=== PATIENT | female | born 1980 | race Caucasian/White ===

== ENCOUNTER 2016-10-10 18:45 | Observation (INO) | payer BC, MEDICAID ==
[~2016-10-10] VITALS: Ht 149.9 cm; Wt 67.1 kg
--- OUTSIDE RECORDS SUMMARY | 2016-10-10 18:50 | XMS REPORT ---
Author ALEC Badillo e[employer] Address Unknown Phone Unavailable Care Team Providers Care Tie Fastener Name Role Phone ALEC DOVE CP Unavailable Allergies, Adverse Reactions, Alerts Substance Reaction Event Type ampicilin Info Not Available Non Drug Allergy Problems Problem Type Condition Code Onset Dates Condition Status Assessment Dental examination Z01.20 Active Medications Medication Code System Code Instructions Start Date End Date Status Dosage [place] [facility] [id number] 5-325 MG Orally every 6 hrs February 01, 2016January 1 tablet as needed Amoxicillin [facility] [address]-02 500 MG Orally Four times a day February 01, 2016 February 08, 2016 1 capsule Procedures Procedure Coding System Code Date INTRAORL-PERIAPICAL 1 FILM 96481 CPT-4 D0220 February 01, 2016 BITEWING - SINGLE FILM CPT-4 D0270 February 01, 2016 LTD ORAL EVALUATION - PROBLEM FOCUS CPT-4 D0140 February 01, 2016 Vital Signs Date/Time: February 01, 2016 Blood Pressure Diastolic 92 mmHg Blood Pressure Systolic 137 mmHg Results No Known Results Summary Purpose eClinicalWorks Submission
[2016-10-10 19:20] VITALS: BP 117/71
[2016-10-10 19:43] LABS: BILIRUBIN,URINE NEGATIVE (NEGATIVE); KETONES,URINE 1+ (NEGATIVE); LEUKOCYTE ESTERASE ,URINE NEGATIVE (NEGATIVE); NITRITE,URINE NEGATIVE (NEGATIVE); PH,URINE 6 (5-9); PROTEIN,URINE 1+ (NEGATIVE); UROBILINOGEN,URINE NORMAL (NORMAL)
[2016-10-10 19:57] LABS: WBC,URINE 0-2 /HPF
[2016-10-10 19:58] LABS: SQUAMOUS EPITHELIAL CELL,UR RARE /HPF
[2016-10-10] MEDS ORDERED: NS IV 1000 ML 1,000 ML ONE (20:03)
[2016-10-10] MEDS ORDERED: NS IV 1000 ML 1,000 ML IV SCH ×2 (20:15→22:45)
[2016-10-10] MEDS ORDERED: PREN-37 PO (20:32)
[2016-10-10 21:28] VITALS: BP 125/80
[2016-10-10] MEDS ORDERED: CALCIUM CARBONATE 500 MG (TUMS) TAB.CHEW PO PRN (21:30)
[2016-10-10 22:52] VITALS: BP 122/61
[2016-10-11] MEDS ORDERED: D5 LR IV SOLUTION 1,000 ML IV SCH (00:41)
[2016-10-11] MEDS ORDERED: HYDROmorphone (DILAUDID) 2 MG/ML VIAL IVP ONE (00:45)
[2016-10-11] MEDS ORDERED: MINERAL OIL CONCENTRATE 99.9% 15 ML UDC TOP PRN (00:45)
[2016-10-11 00:59] LABS: BASOPHILS % (AUTO) 0 % (0-10); EOSINOPHILS # (AUTO) 0.1 10^3/uL (0.0-0.3); EOSINOPHILS % (AUTO) 1 % (0-10); LYMPHOCYTES # (AUTO) 1.6 X 10^3 (1.0-4.0); LYMPHOCYTES % (AUTO) 16 % (12-44); MEAN CORPUSCULAR HEMOGLOBIN 26 PG (25-34); MEAN CORPUSCULAR HGB CONC 32 G/DL (32-36); MEAN CORPUSCULAR VOLUME 80 FL (80-99); MEAN PLATELET VOLUME 9.7 FL (7.4-10.4); MONOCYTES # (AUTO) 0.9 X 10^3 (0.0-1.0); MONOCYTES % (AUTO) 9 % (0-12); NEUTROPHILS # (AUTO) 7.1 X 10^3 (1.8-7.8); NEUTROPHILS % (AUTO) 74 % (42-75); PLATELET COUNT 230 10^3/uL (130-400); RED BLOOD COUNT 4.09 10^6/uL (4.35-5.85); RED CELL DISTRIBUTION WIDTH 13.1 % (10.0-14.5); WHITE BLOOD COUNT 9.7 10^3/uL (4.3-11.0)
[2016-10-11 04:53] VITALS: BP 113/73
[2016-10-11] MEDS ORDERED: FLU TRIvalent (5 YOA+) 2016-17 (AFLURIA) 0.5 ML IM ONE (07:00)
[2016-10-11] MEDS ORDERED: CATHETER FLUSH 10 ML SYR IV PRN (07:00)
[2016-10-11 08:00] VITALS: BP 121/73
--- NOTE | 2016-10-11 08:27 | History & Physical-OB ---
OB - Chief Complaint & HPI Date Date of Admission: Date of Admission: Oct 11, 2016 at 12:30 am Chief Complaint/History OB-Reason for Admission/Chief: Labor Hx : 8 Hx Para: 5 Expected Date of Delivery: Nov 10, 2016 Gestational Age in Weeks: 35 Gestational Age in Days: 5 Other reason for admission: contractions and small amount of cervical change from 2 - > 2.5, with regular contractions q 2-3 min. Admission Nurse Assessment Rev: Yes History of Labs see Dr. Borrero's prenatals GBS done and negative Allergies and Home Medications Allergies Coded Allergies: Ampicillin (Verified Allergy, Unknown, 06/17/07) Home Medications Vit/Iron Fumarate/FA 1 Each Tablet 1 EACH PO DAILY (Reported) OB - History Hx of Present Care: Yes Ultrasounds: Normal mid trimester US Obstetrical Complications: None Medical Complications: None Obstetrical History Hx : 8 Hx Para: 5 Hx Total # of Abortions (Spona: 2 Hx Multiple Gestation: No Hx Stillbirth: No Hx Complication: No Hx Induced Hypertens: No Hx Maternal Gestational Diabet: No Delivery History Hx Dystocia: No Hx Large For Gestational Age I: No Hx Small for Gestational Age I: No Hx Section: No Hx Vaginal Delivery Post C-Sec: No Hx Blood Disorders: No Adverse Rxn to Tranfusion: No Patient Past Medical History Hx of Asthma Social History/Family History HIV/AIDS: No Recent Infectious Disease Expo: No Sexually Transmitted Disease: No Alcohol Use: Denies Use Recreational Drug Use: No Immunizations Hepatitis A: No Hepatitis B: No OB - Admission Exam Physical Exam Vitals: Vital Signs 10/11/16 10/11/16 04:53 06:23 Temp 99.2 Pulse 89 Resp 18 B/P 113/73 O2 Delivery Room Air HEENT: NCAT Abdomen: Gravid Extremities: Normal Reflexes: Normal Cervical Dilatation: 2cm Effacement: 75% Station: -3 Membranes: Intact Heart Rate: 130's Accelerations: Accelerations Present Decelerations: No Decelerations Short Term Variability: Present [employer] Layout Drafter Variability: Average (6-25) Contractions on Admission: 6-10 Minutes Apart Intensity: Mild Labs Laboratory Tests Test 10/10/16 19:10 10/11/16 00:52 Range/Units Urine Bacteria TRACE /HPF Urine Bilirubin NEGATIVE NEGATIVE Urine Casts NONE /LPF Urine Clarity CLEAR Urine Color YELLOW Urine Crystals NONE /LPF Urine Culture Indicated NO Urine Glucose (UA) 2+ H NEGATIVE Urine Ketones 1+ H NEGATIVE Urine Leukocyte Esterase NEGATIVE NEGATIVE Urine Mucus NEGATIVE /LPF Urine Nitrite NEGATIVE NEGATIVE Urine Protein 1+ H NEGATIVE Urine RBC 0-2 /HPF Urine RBC (Auto) 2+ H NEGATIVE Urine Specific [place] 1.020 1.016-1.022 Urine Squamous Epithelial Cells RARE /HPF Urine Urobilinogen NORMAL NORMAL MG/DL Urine WBC 0-2 /HPF Urine pH 6 5-9 Basophils # (Auto) 0.0 0.0-0.1 10^3/uL Basophils (%) (Auto) 0 0-10 % Eosinophils # (Auto) 0.1 0.0-0.3 10^3/uL Eosinophils (%) (Auto) 1 0-10 % Hematocrit 33 L 35-52 % Hemoglobin 10.6 L 11.5-16.0 G/DL Lymphocytes # (Auto) 1.6 1.0-4.0 X 10^3 Lymphocytes (%) (Auto) 16 12-44 % Mean Corpuscular Hemoglobin 26 25-34 PG Mean Corpuscular Hemoglobin Concent 32 32-36 G/DL Mean Corpuscular Volume 80 80-99 FL Mean Platelet Volume 9.7 7.4-10.4 FL Monocytes # (Auto) 0.9 0.0-1.0 X 10^3 Monocytes (%) (Auto) 9 0-12 % Neutrophils # (Auto) 7.1 1.8-7.8 X 10^3 Neutrophils (%) (Auto) 74 42-75 % Platelet Count 230 130-400 10^3/uL Red Blood Count 4.09 L 4.35-5.85 10^6/uL Red Cell Distribution Width 13.1 10.0-14.5 % White Blood Count 9.7 4.3-11.0 10^3/uL OB - Assessment/Plan/Diagnosis Assessment Assessment: labor Plan Plan: Expectant Management Other Plan this patient was seen this morning and found to make no further change. She is 2-3 cm dilated 60 percent effaced and -3 station. Vertex presentation confirmed by bedside ultrasound. The patient is GBS negative therefore discussed with her labor precautions and was okay with sending her home as she was requesting to be sent home as her contractions had slowed down and subsided this morning. Follow up with Dr. Borrero next Monday was discussed. Discharge Diagnosis Diagnosis: 36 yo @ 35.5 labor- prolonged latent phase Hx of PTL with delivery Advanced maternal age Hx of Asthma GBS neg TR FERRARI DO Oct 11, 2016 8:27 am
--- OUTSIDE RECORDS SUMMARY | 2016-10-16 10:11 | XMS REPORT ---
Author ALEC Badillo e[employer] Address Unknown Phone Unavailable Care Team Providers Care Float Nurse Name Role Phone ALEC DOVE CP Unavailable Allergies, Adverse Reactions, Alerts Substance Reaction Event Type ampicilin Info Not Available Non Drug Allergy Problems Problem Type Condition Code Onset Dates Condition Status Assessment Dental examination Z01.20 Active Medications Medication Code System Code Instructions Start Date End Date Status Dosage [place] [facility] [id number] 5-325 MG Orally every 6 hrs February 01, 2016January 1 tablet as needed Amoxicillin [facility] [address]-54 500 MG Orally Four times a day February 01, 2016 February 08, 2016 1 capsule Procedures Procedure Coding System Code Date INTRAORL-PERIAPICAL 1 FILM 11303 CPT-4 D0220 February 01, 2016 BITEWING - SINGLE FILM CPT-4 D0270 February 01, 2016 LTD ORAL EVALUATION - PROBLEM FOCUS CPT-4 D0140 February 01, 2016 Vital Signs Date/Time: February 01, 2016 Blood Pressure Diastolic 92 mmHg Blood Pressure Systolic 137 mmHg Results No Known Results Summary Purpose eClinicalWorks Submission
[2016-10-27] MEDS ORDERED: IBUP-1780 PO (07:33)
[2016-10-27] MEDS ORDERED: OXYC-465 PO (07:34)
[2016-10-27] MEDS ORDERED: DOCU100C37 PO (07:34)
== END 2016-10-11 08:30 | disposition home or self-care (01) ==
LOC: LDRP 18:45 → WSo 18:45 → LDRP 18:53 → UNDOADMIN 10-11 00:30 → LDRP 10-11 00:30 → WSo 10-11 00:30 → UNDODISIN 10-11 08:44 → EDSTATUS 10-13 15:19
PROVIDERS: ADMIT Obstetrics & Gynecology; ATTEND Obstetrics & Gynecology
DX: O62.0 Primary inadequate contractions (principal); O09.523 Supervision of elderly multigravida, third trimester; Z3A.35 35 weeks gestation of pregnancy
CPT/HCPCS: 36415; 81000; 85025; 86850; 86900; 86901; 96361; 96374; 99211; G0378

== ENCOUNTER 2016-10-25 13:55 | Inpatient (IN) | payer BC, MEDICAID ==
[~2016-10-25] VITALS: Ht 149.9 cm; Wt 68.5 kg
[2016-10-25 13:55] VITALS: BP 132/86
[~2016-10-25 13:55] MED LIST: PREN-37 PO
[2016-10-25] MEDS: D5 LR IV SOLUTION 1,000 ML IV SCH ×2 (14:15→18:31)
[2016-10-25 14:42] LABS: BILIRUBIN,URINE NEGATIVE (NEGATIVE); KETONES,URINE NEGATIVE (NEGATIVE); LEUKOCYTE ESTERASE ,URINE NEGATIVE (NEGATIVE); NITRITE,URINE NEGATIVE (NEGATIVE); PH,URINE 7 (5-9); PROTEIN,URINE NEGATIVE (NEGATIVE); UROBILINOGEN,URINE NORMAL (NORMAL)
[2016-10-25 15:10] VITALS: BP 117/74
[2016-10-25 17:50] VITALS: BP 115/74
[2016-10-25 20:35] VITALS: BP 112/64
[2016-10-26] VITALS (64 sets, daily range): BP systolic 59–143; BP diastolic 25–95
[2016-10-26] MEDS ORDERED: diphenhydrAMINE 25 MG TAB (BENADRYL) PO PRN (00:30)
[2016-10-26] MEDS: D5 LR IV SOLUTION 1,000 ML IV SCH (05:31)
[2016-10-26 05:53] LABS: BASOPHILS % (AUTO) 0 % (0-10); EOSINOPHILS # (AUTO) 0.1 10^3/uL (0.0-0.3); EOSINOPHILS % (AUTO) 1 % (0-10); LYMPHOCYTES # (AUTO) 1.5 X 10^3 (1.0-4.0); LYMPHOCYTES % (AUTO) 22 % (12-44); MEAN CORPUSCULAR HEMOGLOBIN 25 PG (25-34); MEAN CORPUSCULAR HGB CONC 32 G/DL (32-36); MEAN CORPUSCULAR VOLUME 78 FL (80-99); MEAN PLATELET VOLUME 9.6 FL (7.4-10.4); MONOCYTES # (AUTO) 0.6 X 10^3 (0.0-1.0); MONOCYTES % (AUTO) 8 % (0-12); NEUTROPHILS # (AUTO) 4.6 X 10^3 (1.8-7.8); NEUTROPHILS % (AUTO) 68 % (42-75); PLATELET COUNT 210 10^3/uL (130-400); RED BLOOD COUNT 3.79 10^6/uL (4.35-5.85); RED CELL DISTRIBUTION WIDTH 13.9 % (10.0-14.5); WHITE BLOOD COUNT 6.7 10^3/uL (4.3-11.0)
[2016-10-26] MEDS ORDERED: CATHETER FLUSH 10 ML SYR IV SCH (06:00)
[2016-10-26] MEDS ORDERED: SUFENTA 0.6MCG/ML BUPIVA 0.125 100 ML ONE (06:35)
[2016-10-26] MEDS ORDERED: fentaNYL INJECTION 100 MCG/2 ML AMP ONE (06:41)
[2016-10-26] MEDS ORDERED: OXYTOCIN/NORMAL SALINE 500 ML IV SCH (07:00)
[2016-10-26] MEDS ORDERED: D5 LR IV SOLUTION 1,000 ML IV SCH (07:02)
--- NOTE | 2016-10-26 07:02 | History & Physical ---
History and Physical this patient is a 35-year-old A2 white female with an EDC of 4 [phone] putting her at 37-1/2 weeks gestation. She presented last seen with complaint of contractions and pressure. She was found to be anup somewhat irregularly. In clinic on the day prior her cervix is almost 3 cm dilated at this point on admission for several hours of observation her cervix was 4 cm dilated. Her contractions had spaced out somewhat hydration. Her history is significant for having had by deliveries. Her labors have been all generally less than 2 hours. She does make very rapid progress in labor with very rapid deliveries. She was made to watch her overnight and reevaluate in the morning. Through the night her contractions have increased. She continues to feel increasing pain. The case that this is how her labors presented. GBS culture was negative. She denies ruptured membranes or bleeding. She's had no problems with this . Allergies are to ampicillin which causes difficulty breathing Medications are vitamins clean edges and albuterol when necessary for her asthma Past medical history, past surgical history, obstetric history, family history, and social histories are per the antepartum record HEENT exam is normal Neck supple no lymphadenopathy no thyromegaly Abdomen gravid soft nontender nondistended Extremities show clubbing cyanosis. There is no Homans sign. Pelvic exam shows a cervix 5 cm dilated 70 percent effaced -1-0 station intact and bulging bag with a vertex presentation Laboratory Tests 10/26/16 05:42 assessment and plan term in early labor with a somewhat prolonged latent labor. Plan is for placing epidural and proceeding with delivery. Contractions begun augment initially with amniotomy. term in early labor with a history of rapid labor Allergies and Home Medications Allergies Coded Allergies: Ampicillin (Verified Allergy, Unknown, 06/17/07) Home Medications Vit/Iron Fumarate/FA 1 Each Tablet, 1 EACH PO DAILY, (Reported) Clinical Quality Measures DVT/VTE Risk/Contraindication: Risk Factor Score Per Nursin RFS Level Per Nursing on Admit: 1=Low/No VTE PPX KERA MARTÍNEZ MD Oct 26, 2016 7:02 am
[2016-10-26] MEDS ORDERED: ONDANSETRON 4 MG/2 ML (SDV) Z0FRAN ONE (07:05)
[2016-10-26] MEDS ORDERED: oxyCODONE/APAP 10/325MG (PERCOCET 10) TABLET PO PRN (07:15)
[2016-10-26] MEDS ORDERED: BENZOCAINE/MENTHOL (DERMOPLAST) 56 ML CAN TP PRN (07:15)
[2016-10-26] MEDS ORDERED: TETANUS,DIPTH,PERTUSS P/F (BOOSTRIX) 0.5 ML VIAL IM ONE (07:15)
[2016-10-26] MEDS ORDERED: MEASLES,MUMPS,RUBELLA 1 EA INJ SC ONE (07:15)
[2016-10-26] MEDS ORDERED: LACTATED RINGERS 1,000 ML IV ONE ×2 (07:18→09:49)
[2016-10-26] MEDS ORDERED: diphenhydrAMINE 50 MG/ML INJ (BENADRYL) IV PRN (10:00)
[2016-10-26] MEDS ORDERED: NALOXONE 0.4 MG/ML 1 ML (NARCAN) VIAL IV PRN (10:00)
[2016-10-26] MEDS ORDERED: CATHETER FLUSH 10 ML SYR IV PRN (10:00)
[2016-10-26] MEDS ORDERED: EPIDURAL (SUFENTA 0.6MCG/ML BUPIVA 0.125%) 100 ML BAG EPI SCH (10:00)
[2016-10-26] MEDS ORDERED: ONDANSETRON 4 MG/2 ML (SDV) Z0FRAN IV PRN (10:00)
[2016-10-26] MEDS ORDERED: fentaNYL INJECTION 100 MCG/2 ML AMP INJ ONE (10:00)
[2016-10-26] MEDS ORDERED: LIDOCAINE/EPI 1%-1:200,000 (XYLOCAINE) 30 ML VIAL ONE (12:58)
[2016-10-26] MEDS: KETOROLAC 30 MG/ML VIAL IV SCH ×2 (16:29→22:48)
[2016-10-26] MEDS: DOCUSATE SODIUM 100 MG (COLACE) CAP PO SCH (22:48)
[2016-10-27 00:45] VITALS: BP 115/65
[2016-10-27] MEDS ORDERED: KETOROLAC 30 MG/ML VIAL ONE (04:48)
[2016-10-27] MEDS: KETOROLAC 30 MG/ML VIAL IV SCH (04:53)
[2016-10-27 04:55] VITALS: BP 112/72
[2016-10-27] MEDS ORDERED: IBUPROFEN 800 MG (MOTRIN) TAB PO SCH (07:15)
[2016-10-27] MEDS ORDERED: IBUP-1780 PO (07:33)
[2016-10-27] MEDS ORDERED: DOCU100C37 PO (07:34)
[2016-10-27] MEDS ORDERED: OXYC-465 PO (07:34)
--- NOTE | 2016-10-27 07:35 | Discharge Instructions ---
Discharge Instructions Discharge Medications New, Converted or Re-Newed RX: RX on Chart Patient Instructions Patient Instructions: as directed Return to The Hospital For: as directed Activity & Diet Discharge Diet: No Restrictions Activity as Tolerated: No Orders-Post D/C & Referrals Follow Up Appt: Call to make follow up appt. for patient in 4 weeks. Activity Per routine post vaginal delivery instructions. Diet as tolerated Patient may shower or tub bathe as desired. KERA MARTÍNEZ MD Oct 27, 2016 7:35 am
--- NOTE | 2016-10-27 07:36 | Progress Note-Standard ---
Standard Progress Note Progress Notes/Assess & Plan Progress/Assessment & Plan this patient is without complaint. She is ambulating, voiding, tolerating by mouth well, has good pain control. Patient denies chest pain, denies shortness of breath, denies nausea vomiting, and denies headache. Patient is requesting discharge home. Vital Signs Date Time Temp Pulse Resp B/P (MAP) Pulse Ox O2 Delivery O2 Flow Rate FiO2 10/27/16 04:55 98.9 77 18 112/72 98 Room Air 10/27/16 00:45 99.0 79 18 115/65 97 Room Air 10/26/16 21:35 98.9 88 18 120/71 97 Room Air 10/26/16 17:10 99.2 93 18 105/64 99 Room Air 10/26/16 15:49 116 18 131/71 Room Air 10/26/16 15:34 111 18 141/74 Room Air 10/26/16 15:19 105 18 135/64 Room Air 10/26/16 15:04 118 18 123/80 Room Air 10/26/16 14:49 98.9 117 18 131/78 Room Air 10/26/16 14:34 122 18 136/87 Room Air 10/26/16 14:20 131 18 106/69 Room Air 10/26/16 14:05 139 18 117/76 Room Air 10/26/16 13:50 99 18 118/70 Room Air 10/26/16 13:35 126 18 123/72 Room Air 10/26/16 13:20 98.7 121 18 115/68 Room Air 10/26/16 13:05 122 18 119/74 Room Air 10/26/16 12:50 90 18 121/63 Room Air 10/26/16 12:35 96 18 117/67 Room Air 10/26/16 12:20 102 18 119/71 Room Air 10/26/16 12:05 97.6 111 18 122/71 Room Air 10/26/16 11:50 96 18 112/67 Room Air 10/26/16 11:35 99 18 117/88 Room Air 10/26/16 11:20 130 18 115/68 Room Air 10/26/16 11:05 100 18 115/68 Room Air 10/26/16 10:50 97 18 115/64 Room Air 10/26/16 10:35 97.5 102 18 120/66 Room Air 10/26/16 10:20 122 18 106/59 Room Air 10/26/16 10:05 92 18 99/60 Room Air 10/26/16 09:50 100 18 99/57 Room Air 10/26/16 09:35 109 18 112/70 Room Air 10/26/16 09:20 105 18 110/72 99 Room Air 10/26/16 09:05 97.0 94 18 114/71 99 Room Air 10/26/16 08:50 83 18 112/67 100 Room Air 10/26/16 08:35 90 18 106/58 100 Room Air 10/26/16 08:20 88 18 113/58 100 Room Air 10/26/16 08:05 86 18 110/59 100 Room Air 10/26/16 07:49 106 18 111/56 100 Room Air 10/26/16 07:45 96.0 85 18 116/61 98 Room Air 10/26/16 07:42 98 18 120/62 100 Room Air 10/26/16 07:39 102 18 116/65 100 Room Air 10/26/16 07:36 90 18 114/69 100 Room Air I & O 10/27/16 07:00 Intake Total 1500 ml Balance 1500 ml vital signs are stable. Patient is afebrile. Fundus is firm below the umbilicus and nontender. Extremities show clubbing or cyanosis. There is no Homans sign. There is some pretibial pitting edema that is normal. Assessment and plan day number 1 status post term spontaneous vaginal delivery doing well. Plan is for discharge home with follow-up in clinic Final Diagnosis term spontaneous vaginal delivery at 37 weeks and 5 days KERA MARTÍNEZ MD Oct 27, 2016 7:36 am
[2016-10-27 09:10] VITALS: BP 130/76
[2016-10-27] MEDS: DOCUSATE SODIUM 100 MG (COLACE) CAP PO SCH (09:19)
--- NOTE | 2016-10-27 11:35 | PROCEDURE REPORT ---
PROCEDURE PHYSICIAN: KERA MARTÍNEZ DATE OF PROCEDURE: 10/26/2016 DATE OF DICTATION: 10/26/2016 DELIVERY NOTE: The patient delivered by term spontaneous vaginal delivery of a viable male infant with Apgars of 7 and 9 at one and five minutes respectfully. Weight was 7 pounds, 4 ounces. Cord arterial blood gas pH was 7.31. The delivered with 2 pushes from a straight away position over the perineum. Delivery was atraumatic. The was bulb suctioned on delivery of the head again on completion of the delivery. The was bulb suctioned and stimulated and dried until the cord was pulseless, and the umbilical cord was doubly clamped, father cut the cord. The baby was passed to mom's abdomen. The delivery was accomplished over a first-degree perineal laceration that was repaired under local analgesia with a single suture of 3-0 Vicryl. The cervix, vagina, rectum and perineum were examined after delivery and found intact except for the first-degree perineal laceration. The patient tolerated delivery and the repair well. Estimated blood loss was around 250 mL. Sponge and needle counts were correct on completion of the delivery and repair. The patient remained in the LDR for recovery. The baby remained with the mom. Job ID: [id number] Dictated Date: 10/26/2016 15:48:07 Limo Driver Date: 10/27/2016 11:32:12 / [email or web address]
--- NOTE | 2016-10-27 13:58 | Anesthesia-Regional Post-Op ---
Regional Patient Condition Mental Status: Alert, Oriented x3 Circulation: Same as Pre-Op Headache: Absent Sensation: Full Recovery Motor Block: Absent Post Op Complications Complications None Follow Up Care/Instructions Patient Instructions None needed. Anesthesia/Patient Condition Patient is doing well, no complaints, stable vital signs, no apparent adverse anesthesia problems. No complications reported per nursing. [place] [facility] [place]: No MUSA HEMPHILL CRNA Oct 27, 2016 13:58
[2016-10-27 14:40] VITALS: BP 130/76
== END 2016-10-27 17:10 | disposition home or self-care (01) | DRG 775 ==
LOC: LDRP 13:55 → WSo 13:55 → LDRP 10-26 00:25 → WSo 10-26 00:25 → LDRP 10-26 05:40
PROVIDERS: ADMIT Obstetrics & Gynecology; ATTEND Obstetrics & Gynecology
PROC: 0HQ9XZZ Repair Perineum Skin, External Approach (ICD-10-PCS; principal; 2016-10-26)
PROC: 10E0XZZ Delivery of Products of Conception, External Approach (ICD-10-PCS; 2016-10-26)
DX: O70.0 First degree perineal laceration during delivery (principal); Z3A.39 39 weeks gestation of pregnancy; Z37.0 Single live birth
CPT/HCPCS: 36415; 81000; 85025; 86850; 86900; 86901; 87088; 99212